=== PATIENT | female | born 1995 | race Caucasian/White ===

== ENCOUNTER 2018-01-27 12:59 | Emergency (ER) | payer OTHER ==
[~2018-01-27] VITALS: Ht 167.6 cm; Wt 59.1 kg
[~2018-01-27 12:59] MED LIST: CEPHALEXIN500 M1 PO
[2018-01-27 13:03] VITALS: TEMP 98.9
[2018-01-27 13:49] VITALS: BP 97/63; PULSE 78
[2018-01-27 14:01] LABS: CALCIUM 9.6 mg/dL (8.4-10.2); CREATININE, serum 0.58 mg/dL (0.52-1.25); POTASSIUM 4.3 mmol/L (3.4-5.0)
[2018-01-27] MEDS ORDERED: NAPROXEN 3375 MG/TAB PO (14:28)
== END 2018-01-27 14:37 | disposition home or self-care (01) ==
LOC: COL.ER 12:59
PROVIDERS: Physician Assistant
DX: R07.89 Other chest pain (principal); Z87.891 Personal history of nicotine dependence